=== PATIENT | female | born 1980 | race Caucasian/White ===

== ENCOUNTER → 2016-06-03 | Outpatient (CLI) | payer OTHER | LOC: BMCIMAGING 11:48 | PROVIDERS: ATTEND Family Medicine | DX: M79.672 Pain in left foot (principal) ==

== ENCOUNTER 2016-09-17 09:52 | Inpatient (IN) | payer OTHER ==
[2016-09-17] MEDS ORDERED: HYDROmorphONE/DILAUDID 1 MG/ML SYR IVP ONE ×2 (10:27→11:26)
[2016-09-17] MEDS ORDERED: ONDANSETRON 4 MG/2 ML VIAL ONE ×2 (10:28→16:16)
[2016-09-17] MEDS ORDERED: HYDROmorphONE/DILAUDID 1 MG/ML SYR ONE (10:28)
[2016-09-17] MEDS ORDERED: ONDANSETRON 4 MG/2 ML VIAL IVP ONE (10:37)
[2016-09-17] MEDS ORDERED: NS 1,000 ML IV ONE (10:49)
--- NOTE | 2016-09-17 10:56 | EDPHY ---
H & P Time Seen by Provider: 09/17/16 10:08 HPI/ROS: CHIEF COMPLAINT: Left leg injury HISTORY OF PRESENT ILLNESS: 36-year-old female presents to the emergency department by ambulance after she fell down some stairs earlier this morning on her home. Patient states that she slipped on some stairs and fell injuring her left lower leg. She did not hit her head or lose consciousness. Denies neck or back pain. Denies chest pain or difficulty breathing. Denies any presyncopal symptoms prior to her fall. She complains of isolated pain in her left lower leg. She denies numbness or tingling in her toes, pain in her left ankle, left knee or hip. She denies abdominal pain or vomiting. REVIEW OF SYSTEMS: Constitutional: No fever, no chills. Eyes: No double or blurry vision. ENT: No sore throat. Respiratory: No cough, no shortness of breath. Cardiac: No chest pain. Gastrointestinal: No abdominal pain, vomiting or diarrhea. Genitourinary: No dysuria. Musculoskeletal: No neck or back pain. Skin: No rashes. Neurological: No headache. Past Medical/Surgical History: PTSD Social History: Single and lives in [place] Smoking Status: Never smoked Physical Exam: General Appearance: Alert, no distress. No visible signs of trauma to her head. She is mentating normally and answering questions appropriately. Eyes: Pupils equal and round. Extraocular motions are all intact. ENT: Mouth: Mucous membranes moist. Respiratory: No wheezing, rhonchi, or rales, lungs are clear to auscultation. Cardiovascular: Regular rate and rhythm. Gastrointestinal: Abdomen is soft and nontender, no masses, no rebound or guarding, bowel sounds normal. Neurological: Alert and oriented x 3, cranial nerves II through XII grossly intact Skin: No abrasions or lacerations. No puncture wound. No signs of open fracture. Warm and dry, no rashes. Musculoskeletal: Nontender to palpate along the cervical, thoracic or lumbar spine. Neck is supple. Extremities: Obvious swelling and deformity noted to the left mid lower leg. Tender to palpate. Limited range of motion of the left ankle and left knee secondary to pain. Limited range of motion of the left hip secondary to pain in her left lower leg. She has normal sensation to light touch with normal 2 point discrimination. Strong dorsalis pedis pulse on the dorsal aspect of her left foot. Strong posterior tibial pulses well. Skin is warm and dry. No evidence of open fracture. No skin tenting. Psychiatric: Patient is oriented X 3, there is no agitation. Constitutional: Initial Vital Signs Heart Rate 80 09/17/16 10:02 Respiratory Rate 16 09/17/16 10:02 Blood Pressure 110/70 09/17/16 10:02 O2 Sat (%) 99 09/17/16 10:02 O2 Delivery Mode Room Air Allergies/Adverse Reactions: No Known Allergies Allergy (Unverified 07/31/15 01:24) Home Medications: Medication Instructions Recorded Escitalopram Oxalate [Lexapro] 10 mg PO HS 07/31/15 Gabapentin [Neurontin 300 MG (*)] 300 mg PO BID 09/17/16 Herbals/Supplements -Info Only 1 ea PO DAILY 09/17/16 LORazepam [Ativan (*)] 0.5 mg PO DAILY PRN 09/17/16 Multivitamins [Multivitamin (*)] 1 each PO DAILY 09/17/16 [place]-3 Fatty Acids [Fish Oil 1000 1,000 mg PO DAILY 09/17/16 mg (*)] Oxcarbazepine [Trileptal] 150 mg PO BID 09/17/16 Vitamin B Complex [B Complex] 1 each PO DAILY 09/17/16 buPROPion XL [Wellbutrin Xl] 150 mg PO DAILY 09/17/16 Medical Decision Making - Diagnostics Imaging Results: Imaging Impressions Tibia/Fibula X-Ray 09/17/16 10:08 Impression: Acute angulated and displaced distal tibia and fibular diaphyseal fractures. Imaging: I viewed and interpreted images myself Procedures: Patient was placed in a long-leg Ortho Glass splint and examined post application in good placement with normal ROPE CUTTER. ED Course/Re-evaluation: 36-year-old female presents after mechanical fall down some stairs at her home injuring her right lower leg. X-rays reveal shaft fracture of both the distal fibula and tibia which is angulated. No involvement in ankle mortise or extension up into the right knee. The patient was kept NPO. She was given IV Dilaudid for pain. Her leg was elevated and ice packs were applied. There is no evidence of compartment syndrome currently. She has strong pulses. Her pain is relieved with elevation and ice. I spoke with the physician programs assistant working with Dr. Jorge El who was on- call for Orthopedics, who came to evaluate this patient and the patient will be taken to the operating room for repair. Patient will be admitted to Dr. Jorge El. Differential Diagnosis: Including but not limited to fracture, dislocation, contusion, sprain, open fracture, compartment syndrome - Data Points Medications Given: Discontinued Medications Hydromorphone HCl (Dilaudid) 1 mg IVP EDNOW ONE Stop: 09/17/16 10:28 Last Admin: 09/17/16 10:37 Dose: 0.5 mg Hydromorphone HCl (Dilaudid) 1 mg IVP EDNOW ONE Stop: 09/17/16 11:27 Last Admin: 09/17/16 11:28 Dose: 1 mg Hydromorphone HCl (Dilaudid) 0.2 - 0.4 mg IVP Q4HRS PRN PRN Reason: Pain, Severe Unable to Take PO Stop: 09/27/16 12:49 Last Admin: 09/17/16 13:21 Dose: 0.4 mg Sodium Chloride (Ns) 1,000 mls @ 0 mls/hr IV EDNOW ONE; Wide Open PRN Reason: Protocol Stop: 09/17/16 10:50 Last Admin: 09/17/16 10:50 Dose: 1,000 mls Ondansetron HCl (Zofran) 4 mg IVP EDNOW ONE Stop: 09/17/16 10:38 Last Admin: 09/17/16 10:37 Dose: 4 mg Departure - Departure Disposition: To OP Cath/Surgery Clinical Impression: Fracture of right tibia and fibula Qualifiers: Encounter type: initial encounter Fracture type: closed Qualified Code(s): S82.201A - Unspecified fracture of shaft of right tibia, initial encounter for closed fracture; S82.401A - Unspecified fracture of shaft of right fibula, initial encounter for closed fracture Condition: Good
[2016-09-17 11:20] LABS: % IMMATURE GRANULYOCYTES 0.5 % (0.0-1.1); ABSOLUTE IMMATURE GRANULOCYTES 0.05 10^3/uL (0.00-0.10); ADD DIFF? NO; ADD MORPH? NO; ADD SCAN? NO; ATYPICAL LYMPHOCYTE FLAG 10 (0-99); FRAGMENT RBC FLAG 0 (0-99); HEMATOCRIT 40.7 % (38.0-47.0); HEMOGLOBIN 13.9 g/dL (12.6-16.3); LEFT SHIFT FLG 0 (0-99); LIPEMIA HEMOLYSIS FLAG 90 (0-99); MEAN CELL HEMOGLOBIN 30.2 pg (27.9-34.1); MEAN CELL HEMOGLOBIN CONCENTR. 34.2 g/dL (32.4-36.7); MEAN CELL VOLUME 88.5 fL (81.5-99.8); MEAN PLATELET VOLUME 9.8 fL (8.7-11.7); PLATELET CLUMPS FLAG 0 (0-99); PLATELET COUNT 265 10^3/uL (150-400)
[2016-09-17 11:47] LABS: ANION GAP 13 mEq/L (8-16); CALCIUM 9.6 mg/dL (8.5-10.4); CARBON DIOXIDE 20 mEq/l (22-31); CHLORIDE 110 mEq/L (97-110); CREATININE 0.8 mg/dL (0.6-1.0); GLOMERULAR FILTRATION RATE > 60; GLUCOSE 96 mg/dL (70-100); POTASSIUM 4.4 mEq/L (3.5-5.2); SODIUM 143 mEq/L (134-144)
[2016-09-17] MEDS ORDERED: ceFAZolin 2 GM/DEXTROSE 100 ML IV ONE (12:46)
[2016-09-17] MEDS ORDERED: HYDROmorphONE/DILAUDID 1 MG/ML SYR IVP PRN ×2 (12:50→14:02)
[2016-09-17] MEDS ORDERED: D5W 1/2 NS 1,000 ML IV SCH (13:00)
--- NOTE | 2016-09-17 13:43 | GHP ---
[f rep st] HISTORY AND PHYSICAL DATE OF ADMISSION: 09/17/2016 CHIEF COMPLAINT: Right leg pain. HISTORY OF PRESENT ILLNESS: The patient is a pleasant 36-year-old female, presented to the emergency room at [facility] earlier today with a right leg injury. She states that she initially injured her leg slipping on some stairs, but denies any specific DEWAYNE. She does state that she did not suffer any head or neck trauma, and has no head or neck pain. She also denies any LOC. She denies any back pain. The patient states this was a mechanical fall, and denies any precipitating syncopal or dizziness events prior to her fall. She denies any numbness or tingling in her right lower extremity, as well as any pain in her contralateral side, noting no pain in her left hip, knee, ankle, foot or toes. At this time, she states she has significant pain in her right lower extremity as well as is significantly hesitant to move her foot and toes for anything but minimal range of motion. Again, she denies any numbness or tingling into her right lower extremity. She has no additional concerns or complaints at this time. PAST MEDICAL HISTORY: This is significant for a history of posttraumatic stress disorder as well as a history of a resected brain tumor (acoustic neuroma ), which is currently being followed by Dr. Beal. PAST SURGICAL HISTORY: This is significant for a resection of the above- mentioned acoustic neuroma in 2002, as well as wisdom tooth extraction in 2002. The patient denies any additional past surgical history. CURRENT MEDICATIONS: Patient reports that she is taking Lexapro 10 mg daily, gabapentin 300 mg daily, lorazepam 0.5 mg daily, and Trileptal 300 mg daily. Please see medicine reconciliation for complete details. ALLERGIES: The patient reports no known drug allergies, as well as any allergies to metals. SOCIAL HISTORY: The patient denies any current or former tobacco use. Patient reports minimal social alcohol consumption. The patient denies any recreational drug use. 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 FAMILY HISTORY: No significant contributory family history is reported today. REVIEW OF SYSTEMS: A 10-point review of systems was reviewed today with no additional concerns, complaints, or abnormal findings noted in the HPI or PMH. PHYSICAL EXAMINATION: Height is 175.26 cm, weight is 99.79 kg. VITAL SIGNS: BP 112/60, heart rate of 63 bpm, respiratory rate 18 per minute, O2 saturation is 98% on room air, temperature is 36.9 degrees Celsius. GENERAL: The patient is a healthy appearing female, who presents in NAD. Pleasant and cooperative with exam. HEENT: NC/AT. EOMI. PERRLA. Ears and nares are patent and without discharge. OP is clear. NECK: Supple, full ROM, no cervical LAD noted. RESPIRATORY: CTAB, no increased WOB noted. CARDIOVASCULAR: RRR, no M/C/G/R. ABDOMEN: Soft, NT/ND, no masses, no HSM. MUSCULOSKELETAL: Examination of the right lower extremity reveals an intact posterior Orthoglass splint. Significant swelling is noted over the distal third of the right anderson with obvious deformity. This area is TTP. Limited ROM of the knee and the right hip due to a discomfort in the lower leg. The patient is intact to light touch sensation distally. Dorsalis pedis pulse is intact and equal compared bilaterally. Examination of the contralateral side reveals a benign left hip, knee, ankle, and foot exams. NEUROLOGIC: A and O x3 , appropriate mood and affect, speech is very fluid and fluent. SKIN: Please see above dictation concerning right lower extremity. No abrasions or lacerations noted. No fluctuance, no signs of open fracture or skin tenting. The skin is warm, pink, and dry, no rashes. PSYCH: Appropriate mood and affect, patient is pleasant and cooperative with today's exam. RADIOGRAPHS: Two views of the right tibia and fibula reveal an acute angulated displaced distal tibia and fibula fracture. ASSESSMENT: Right tibia and fibula fracture, displaced. PLAN: This patient's case and radiographs were discussed with Dr. Nikko correa, who also saw and examined the patient today. After discussion of treatment options with the patient, including surgical intervention, the patient has decided to proceed with surgical fixation with an open reduction and internal fixation of the right tibia, to be performed later today at [facility]. Risks and benefits of surgical intervention were discussed with the patient today, and a signed informed consent was obtained. A recuperative timeline was discussed with the patient today. We will continue to address the patient's pain preoperatively, and get her cleared and scheduled for surgery this afternoon. All the patient's questions have been answered today, and her concerns addressed. She has relayed her current understanding of the education and treatment plan presented today, and appears pleased with the care she has received today. The patient will likely need 1-2 overnight stays after this procedure for pain control and to monitor for signs of acute compartment syndrome. She will follow up in our clinic approximately 10 to 14 days postoperatively for a wound check and repeat radiographs. It has been my pleasure to assist in the care of this patient. /[id number]/MODL MTDD
[2016-09-17 13:57] LABS: HEMATOCRIT 38.2 % (38.0-47.0); HEMOGLOBIN 13.2 g/dL (12.6-16.3)
[2016-09-17 14:06] LABS: INR 1.01 (0.83-1.16); PROTIME(PATIENT) 13.2 SEC (12.0-15.0)
[2016-09-17] MEDS: LORazepam 0.5 MG TAB PO PRN (14:17)
[2016-09-17 14:49] LABS: ANION GAP 9 mEq/L (8-16); CALCIUM 9.3 mg/dL (8.5-10.4); CARBON DIOXIDE 21 mEq/l (22-31); CHLORIDE 111 mEq/L (97-110); CREATININE 0.8 mg/dL (0.6-1.0); GLOMERULAR FILTRATION RATE > 60; GLUCOSE 94 mg/dL (70-100); POTASSIUM 4.6 mEq/L (3.5-5.2); SODIUM 141 mEq/L (134-144)
[2016-09-17] MEDS: buPROPion XL 150 MG TAB PO SCH (14:52)
[2016-09-17] MEDS ORDERED: LR 1,000 ML IV ONE (15:34)
[2016-09-17] MEDS ORDERED: CEFAZOLIN 2 GM/DEXTROSE/100 ML BAG IV ONE (15:37)
[2016-09-17] MEDS ORDERED: BACITRACIN 50,000 UNITS/10 ML SYR IRR ONE (15:50)
--- NOTE | 2016-09-17 15:56 | PDANEPAE ---
ANE Past Medical History - Cardiovascular History Hx Hypertension: No Hx Arrhythmias: No Hx Chest Pain: No Hx Coronary Artery / Peripheral Vascular Disease: No Hx CHF / Valvular Disease: No Hx Palpitations: No - Pulmonary History Hx COPD: No Hx Asthma/Reactive Airway Disease: No Hx Recent Upper Respiratory Infection: No Hx Oxygen in Use at Home: No Hx Sleep Apnea: No Sleep Apnea Screening Result - Last Documented: Negative - Endocrine History Hx Diabetes: No Obesity: mild - Neurological & Psychiatric Hx Hx Neurological and Psychiatric Disorders: Yes ANE Patient History - Allergies Allergies/Adverse Reactions: No Known Allergies Allergy (Unverified 07/31/15 01:24) - Home Medications Home Medications: Escitalopram Oxalate [Lexapro] 10 mg PO HS 07/31/15 [Last Taken 09/16/16] Gabapentin [Neurontin 300 MG (*)] 300 mg PO BID 09/17/16 [Last Taken 09/16/16 21 :00] Herbals/Supplements -Info Only 1 ea PO DAILY 09/17/16 [Last Taken Unknown] LORazepam [Ativan (*)] 0.5 mg PO DAILY PRN 09/17/16 [Last Taken 3 Days Ago] Multivitamins [Multivitamin (*)] 1 each PO DAILY 09/17/16 [Last Taken Unknown] [place]-3 Fatty Acids [Fish Oil 1000 mg (*)] 1,000 mg PO DAILY 09/17/16 [Last Taken Unknown] Oxcarbazepine [Trileptal] 150 mg PO BID 09/17/16 [Last Taken 09/16/16 21:00] Vitamin B Complex [B Complex] 1 each PO DAILY 09/17/16 [Last Taken Unknown] buPROPion XL [Wellbutrin Xl] 150 mg PO DAILY 09/17/16 [Last Taken 09/16/16] - NPO status NPO Since - Liquids (Date): 09/16/16 NPO Since - Liquids (Time): 20:00 NPO Since - Solids (Date): 09/16/16 NPO Since - Solids (Time): 20:00 - Smoking Hx Smoking Status: Never smoked ANE Labs/Vital Signs - Labs Result Diagrams: 09/17/16 13:51 09/17/16 13:51 - Vital Signs Blood Pressure: 112/60 Heart Rate: 63 Respiratory Rate: 18 O2 Sat (%): 98 Height: 175.26 cm Weight: 99.79 kg ANE Physical Exam - Airway Neck exam: FROM, decreased ROM Mallampati Score: Class 1 Mouth exam: normal dental/mouth exam - Pulmonary Pulmonary: no respiratory distress, no rales or rhonchi, clear to auscultation - Cardiovascular Cardiovascular: regular rate and rhythym, no murmur, rub, or gallop - ASA Status ASA Status: II ANE Anesthesia Plan Anesthesia Plan: GA w LMA
[2016-09-17] MEDS ORDERED: PROPOFOL 200 MG/20 ML VIAL ONE (16:15)
[2016-09-17] MEDS ORDERED: morphINE *ANESTHESIA ONLY* 10 MG/ML VIAL ONE (16:15)
[2016-09-17] MEDS ORDERED: LIDOCAINE 2% JELLY 5 ML TUBE ONE (16:16)
[2016-09-17] MEDS ORDERED: LIDOCAINE 2% 5 ML SDV ONE (16:16)
[2016-09-17] MEDS ORDERED: DEXAMETHASONE 4 MG/ML VIAL ONE ×2 (16:16)
[2016-09-17] MEDS ORDERED: KETAMINE 100 MG/10 ML SYR ONE (16:36)
[2016-09-17] MEDS ORDERED: NALOXONE HCL 0.4 MG/ML INJ IVP PRN (17:04)
[2016-09-17] MEDS ORDERED: LR 500 ML IV PRN (17:34)
[2016-09-17] MEDS ORDERED: fentaNYL 100 MCG/2 ML INJ IVP PRN (17:34)
[2016-09-17] MEDS ORDERED: PROMETHAZINE HCL 25 MG/ML INJ IVP PRN (17:34)
[2016-09-17] MEDS ORDERED: OXYCODONE/APAP 5/325 TAB PO PRN (17:34)
[2016-09-17] MEDS ORDERED: ONDANSETRON 4 MG/2 ML VIAL IVP PRN (17:34)
[2016-09-17] MEDS ORDERED: MEPERIDINE 25 MG/ML SYR IVP PRN (17:34)
[2016-09-17] MEDS ORDERED: BUPIVACAINE/EPI 0.5% 30 ML SDV ONE (18:01)
--- NOTE | 2016-09-17 18:27 | POSTOPPROG ---
Post Op Note Date of Operation: 09/17/16 Surgeon: Jorge El Charter Boat Captain: Gabriel Fagan PAC Anesthesiologist: Nona Anesthesia: GET(General Endotracheal) Pre-op Diagnosis: Right Tibia Fracture Post-op Diagnosis: Same Procedure: IM nail fixation right tibia Findings: Synthes 12mm x 375mm IM nail. Two locking distal and one priximal Inf/Abcess present in the surg proc area at time of surgery?: No EBL: Minimal Complications: None
--- NOTE | 2016-09-17 18:34 | POSTANESTH ---
Post Anesthetic Evaluation Cardiovascular Status: Normal, Stable, Similar to Pre-Op Cond Respiratory Status: Normal, Stable, Similar to Pre-op Cond. Level of Consciousness/Mental Status: Can Participate in Eval, Mildly Sleepy, Arousable Pain Control: Adequate, Prn Tx Ordered Nausea/Vomiting Control: Adequate, Prn Tx Ordered Complications Possibly Related to Anesthesia: None Noted
[2016-09-17] MEDS ORDERED: ACETAMINOPHEN 325 MG TAB PO PRN (18:35)
[2016-09-17] MEDS ORDERED: NS 1,000 ML IV SCH (18:45)
--- NOTE | 2016-09-17 18:45 | SOAPPROG ---
SOAP Progress Note Assessment/Plan: Assessment/Plan: R tibia and fibula fx, displaced s/p IM nailing of R tibia performed by Dr. El on 09/17/2016, POD#0 -Cont PT/OT, pt will be TTWB on RLE, she is to remain in boot at all times -Ice and elevate while in bed, caution for acute compartment syndrome -Cont current pain regimen encourage PO meds as tolerated -Cont SCDs and TEDs on non-op leg for VTE mechanical prophylaxis -Cont ASA for VTE chemoprophylaxis 09/17/16 18:42 Subjective: Pt transported to PACU in stable condition Objective: Vital Signs Temp Pulse Resp BP Pulse Ox 36.5 C 73 14 93/44 L 99 09/17/16 18:22 09/17/16 18:22 09/17/16 18:22 09/17/16 18:22 09/17/16 18:22 Laboratory Results 09/17/16 13:51 09/17/16 13:51 09/16/16 09/17/16 09/18/16 05:59 05:59 05:59 Intake Total 1000 Balance 1000 PT 13.2 SEC (12.0-15.0) 09/17/16 13:51 INR 1.01 (0.83-1.16) 09/17/16 13:51 ICD10 Worksheet Patient Problems: Problems Problem Status Onset Fracture of right tibia and fibula Acute
[2016-09-17] MEDS ORDERED: LORazepam 2 MG/ML INJ IVP PRN (18:48)
[2016-09-17] MEDS ORDERED: BISACODYL 10 MG SUPP PR PRN (19:28)
[2016-09-17] MEDS ORDERED: MAGNESIUM HYDROXIDE 30 ML UDCUP PO PRN (19:28)
[2016-09-17] MEDS ORDERED: LACTULOSE 20 GM/30 ML UDCUP PO PRN (19:28)
[2016-09-17] MEDS: KETOROLAC 30 MG/1 ML SDV IVP PRN (20:08)
[2016-09-17] MEDS: HYDROCODONE/APAP 5/325 TAB PO PRN (20:17)
[2016-09-17] MEDS: ESCITALOPRAM OXALATE 10 MG TAB PO SCH (20:18)
[2016-09-17] MEDS: GABAPENTIN 300 MG CAP PO SCH (20:18)
[2016-09-17] MEDS: OXcarbazepine 300 MG TAB PO SCH (20:18)
[2016-09-17] MEDS: ASPIRIN EC 325 MG TAB PO SCH (20:18)
--- NOTE | 2016-09-17 20:40 | GOP ---
[f rep st] OPERATIVE REPORT DATE OF OPERATION: 09/17/2016 SURGEON: Jorge El MD TALENT ACQUISITION OPERATIONS MANAGER: A registered nurse surgical services was medically necessary and required to complete this case. The as sistant was used to decrease surgical time and also to position the leg in 3-dimensional space, incl uding controlling imaging of the limb during the intramedullary guidewire passage and nail passage. PREOPERATIVE DIAGNOSIS: Right distal tibia and fibula fracture. POSTOPERATIVE DIAGNOSIS: Right distal tibia and fibula fracture. PROCEDURE PERFORMED: Intramedullary nail fixation, right tibia. FINDINGS: A Synthes titanium 12 mm wide x 375 mm long nail was utilized. I proximally interlocked this with 1 in the dynamic slot and distally interlocked this x2. A zero elevation end cap was plac ed proximally. INDICATIONS: The patient is a 36-year-old woman, who fell down the stairs earlier today sustaining the above injury. Due to the displaced nature of her fracture, she is brought to the operating room for definitive surgical management. DESCRIPTION OF PROCEDURE: After routinely checking the patient's identification and consent, and th e successful induction of general endotracheal anesthetic, the patient was positioned in the supine position. A well leg steve was used on the left leg. The right leg was placed in the Acufex leg h older. This encircled the tourniquet that had been placed proximally about the thigh. The foot of the table was removed such that the right leg dangled, flexed at the knee to 90 degrees, such that i t was vertical. The patient's right lower extremity was then prepped and draped in the usual standa rd fashion. A surgical time-out was completed. A longitudinal paramidline incision just to the lat eral side of the patellar tendon was carried sharply through the skin running from the distal pole o f patella to just proximal to the tibial tubercle. I dissected sharply through skin and then bluntl y through the subcutaneous layer. I made a longitudinal incision in the patellar retinaculum just t o the lateral side of the patellar tendon. I dissected bluntly down to the proximal tibia. I then used the starter awl to create a airplane pilot supervisor hole, then passed a guidewire through this opening into the t ibia. I used a small FluoroScan unit to visualize this crossing the fracture site. Of note, I did wrap an Esmarch wrap around the fracture site to slenderize the leg prior to guidewire passage. I v isualized the wire passing the fracture site and then seated this at the distal physeal scar at the tibia. I measured the indwelling portion of the guidewire to approximately 380 mm. I selected a 37 5 mm nail. I then commenced reaming over the guidewire. The knee was flexed during the entry and e xit of the reamers into the proximal tibia. I used an 8 mm in-reamer and then moved in 1 mm increme nts to an 11 mm. Then, reamed an 11.5 and a 12 mm. I selected a 12 mm nail and then passed the mario alberto l down the tibia relatively easily. I seated this distally. I then manipulated the fracture such t hat it closed slightly but still had a small fracture gap. As such, with the limb appropriately ali gned from a rotational standpoint, I distally interlocked the nail with 2 interlocking screws. I us ed a small cutdown-incision both proximally and distally at the transverse holes in the nail. Once this was completed, I attached the retrograde mallet device proximally, and retrograde malleted the nail to close the fracture gap. With this closed, I then proximally interlocked this using the targ eting jig attached to the nail insertion tool. Once this was proximally interlocked via a small cut down incision, I removed the driving apparatus. I irrigated the wound and placed an end cap on the nail. I irrigated the knee wound again and then closed the retinaculum with 2-0 Vicryl, the subcuta neous layer with 3-0 Vicryl, and the skin with subcuticular 4-0 Monocryl. Each of the cutdown incis ions was closed with 4-0 Vicryl followed by Steri-Strips at all wounds. 0.25% Marcaine plus epineph rine was infiltrated into the knee, around the entry site for the nail, and around the 3 interlockin g cutdown incisions. The patient tolerated the procedure well. A sterile bulky dressing was applie d followed by compressive wrap, wrapped proximally and distally. I placed a 3D CAM walker boot on h er to prevent equinus contracture and help control her leg during the initial healing process. She tolerated the surgical procedure well. There were no complications. /[id number]/MODL
[2016-09-17] MEDS ORDERED: NON-FORMULARY NEW DRUG (Oxcarbazepine [Trileptal] 150 MG) PO SCH (21:00)
[2016-09-18] MEDS: oxyCODONE IR 5 MG TAB PO PRN ×2 (00:49→21:54)
[2016-09-18] MEDS: ceFAZolin 2 GM/DEXTROSE 100 ML IV SCH ×2 (00:51→08:27)
[2016-09-18] MEDS: KETOROLAC 30 MG/1 ML SDV IVP PRN ×2 (04:09→13:48)
[2016-09-18] MEDS: HYDROCODONE/APAP 5/325 TAB PO PRN ×4 (04:10→19:28)
[2016-09-18 04:39] LABS: COLOR PALE YELLOW; LEUKOCYTE ESTERASE,URINE NEGATIVE (NEGATIVE); NITRITE,URINE NEGATIVE (NEGATIVE)
[2016-09-18] MEDS: OXcarbazepine 300 MG TAB PO SCH ×2 (08:27→21:52)
[2016-09-18] MEDS: ASPIRIN EC 325 MG TAB PO SCH ×2 (08:28→21:54)
[2016-09-18] MEDS: GABAPENTIN 300 MG CAP PO SCH ×2 (08:28→21:53)
[2016-09-18] MEDS: buPROPion XL 150 MG TAB PO SCH (08:28)
[2016-09-18] MEDS: POLYETHYLENE GLYCOL 3350 17 GM PKT PO PRN (08:33)
--- NOTE | 2016-09-18 11:38 | SOAPPROG ---
SOAP Progress Note Assessment/Plan: Assessment:Doing Fine Plan:PT Pain control D/C plan - Will go to Mom's house (4 steps) D/C per PT recommendations. 09/18/16 11:37 09/18/16 11:38 Subjective: Slept Well, Minimal pain. Objective: Vital Signs Temp Pulse Resp BP Pulse Ox 36.8 C 62 14 87/52 L 99 09/18/16 07:49 09/18/16 07:49 09/18/16 07:49 09/18/16 07:49 09/18/16 07:49 Laboratory Results 09/17/16 13:51 09/17/16 13:51 09/17/16 09/18/16 09/19/16 05:59 05:59 05:59 Intake Total 1965 Output Total 450 600 Balance 1515 -600 PT 13.2 SEC (12.0-15.0) 09/17/16 13:51 INR 1.01 (0.83-1.16) 09/17/16 13:51 AF VSS. CSM I B LE. Dressings dry. Been up to Bathroom. Voided without issues. Tolerating PO diet well. - Pending Discharge Pending Discharge Within 24 Hours: No Pending Discharge Within 48 Hours: Yes Pending Discharge Date: 09/20/16 Pending Discharge Time: 11:00 ICD10 Worksheet Patient Problems: Problems Problem Status Onset Fracture of right tibia and fibula Acute
[2016-09-18] MEDS: LORazepam 0.5 MG TAB PO PRN (19:29)
[2016-09-18] MEDS: ESCITALOPRAM OXALATE 10 MG TAB PO SCH (21:52)
[2016-09-19] MEDS: HYDROCODONE/APAP 5/325 TAB PO PRN (03:11)
--- NOTE | 2016-09-19 06:57 | SOAPPROG ---
SOAP Progress Note Assessment/Plan: Assessment/Plan: R tibia and fibula fx, displaced s/p IM nailing of R tibia performed by Dr. El on 09/17/2016, POD#2 -Cont PT/OT, pt will be TTWB on RLE, she is to remain in boot at all times -Ice and elevate while in bed -Cont current pain regimen encourage PO meds as tolerated -Cont SCDs and TEDs on non-op leg for VTE mechanical prophylaxis -Cont ASA for VTE chemoprophylaxis -Poss d/c today pending PT/OT approval, and cont success w/ PO meds 09/19/16 06:56 Subjective: Pt seen at bedside. No complaints of significant pain today. She states she worked well with PT/OT yesterday, but was not able to work stairs. No complaints of ortiz, n/v/d, cp, sob, abd pain, bilat calf pain or new onset n/t. She states she is tolerating her diet and medications well. She has no additional concerns or complaints at this time. Objective: Vital Signs Temp Pulse Resp BP Pulse Ox 37.1 C 93 14 97/48 L 96 09/18/16 22:59 09/18/16 22:59 09/18/16 22:59 09/18/16 22:59 09/18/16 22:59 Laboratory Results 09/17/16 13:51 09/17/16 13:51 09/18/16 09/19/16 09/20/16 05:59 05:59 05:59 Intake Total 1965 2000 Output Total 450 1200 Balance 1515 800 PT 13.2 SEC (12.0-15.0) 09/17/16 13:51 INR 1.01 (0.83-1.16) 09/17/16 13:51 Pt seen at bedside, awoken for exam. A&Ox3, appropriate mood and affect, pleasant and cooperative with exam. VSS. Exam of RLE reveals intact boot and post operative dressings, clean and dry. No surrounding erythema, calor, discharge or induration. Pt moves toes well. Post calf on contralateral side is NTTP, no palpable vascular cords, neg Jeremiah's. DNVI BLE. ICD10 Worksheet Patient Problems: Problems Problem Status Onset Fracture of right tibia and fibula Acute
[2016-09-19 07:45] VITALS: BP 95/60; PULSE 92; RESP 16; TEMP 98; O2SAT 93
[2016-09-19] MEDS: oxyCODONE IR 5 MG TAB PO PRN ×2 (09:22→12:54)
[2016-09-19] MEDS: buPROPion XL 150 MG TAB PO SCH (09:22)
[2016-09-19] MEDS: GABAPENTIN 300 MG CAP PO SCH (09:22)
[2016-09-19] MEDS: ASPIRIN EC 325 MG TAB PO SCH (09:22)
[2016-09-19] MEDS: OXcarbazepine 300 MG TAB PO SCH (09:23)
[2016-09-19] MEDS: POLYETHYLENE GLYCOL 3350 17 GM PKT PO PRN (09:26)
[2016-09-19] MEDS: LORazepam 0.5 MG TAB PO PRN (12:54)
== END 2016-09-19 13:15 | disposition home or self-care (01) | DRG 494 ==
LOC: EDBD → EDUNIT# → OBSVTOIN 12:15 → F3N 12:28
PROVIDERS: ADMIT Orthopaedic Surgery Hand Surgery; ATTEND Orthopaedic Surgery Hand Surgery
PROC: 0QSG06Z Reposition Right Tibia with Intramedullary Internal Fixation Device, Open Approach (ICD-10-PCS; principal; 2016-09-17 16:15)
DX: S82.301A Unspecified fracture of lower end of right tibia, initial encounter for closed fracture (principal); S82.401A Unspecified fracture of shaft of right fibula, initial encounter for closed fracture; W10.8XXA Fall (on) (from) other stairs and steps, initial encounter; Y92.019 Unspecified place in single-family (private) house as the place of occurrence of the external cause; F43.10 Post-traumatic stress disorder, unspecified
CPT/HCPCS: 96374; 97116-GP; 97161-GP; 97166-GO; 97530-GP; 97535-GO; C1713; J0690; J1100; J1170; J1885; J2405; J2704

== ENCOUNTER → 2017-11-08 | Outpatient (CLI) | payer OTHER | LOC: BMCLAB 11:53 | PROVIDERS: ATTEND Podiatrist Foot & Ankle Surgery | DX: S82.301D Unspecified fracture of lower end of right tibia, subsequent encounter for closed fracture with routine healing (principal); S82.401D Unspecified fracture of shaft of right fibula, subsequent encounter for closed fracture with routine healing ==